=== PATIENT | female | born 1980 | race African-American/Black ===

== ENCOUNTER 2022-04-26 23:26 | Emergency (ER) | payer OTHER ==
[~2022-04-26] VITALS: Ht 162.6 cm; Wt 77.1 kg
--- NOTE | 2022-04-27 00:10 | NUR ---
>Pt has patent airway and speaking in full sentences.
[2022-04-27] MEDS ORDERED: MECLIZINE HCL 25 MG TABLET PO ONE (00:30)
[2022-04-27 01:27] LABS: HEMATOCRIT 32.3 % (31.2-41.9); MEAN CORPUSCULAR HEMOGLOBIN 29.6 uug (24.7-32.8); MEAN CORPUSCULAR VOLUME 89.1 fL (75.5-95.3); PLATELET COUNT (AUTO) 259 K/uL (179-408)
[2022-04-27 01:43] LABS: CARBON DIOXIDE 30 mmol/L (21-32); CHLORIDE 104 mmol/L (98-107); CREATININE 0.8 mg/dL (0.6-1.3); GLUCOSE 80 mg/dL (74-106); POTASSIUM 3.8 mmol/L (3.5-5.1); UREA NITROGEN, BLOOD 12 mg/dL (7-18)
[2022-04-27 01:51] LABS: ALANINE AMINOTRANSFERASE 15 U/L (14-59); ALKALINE PHOSPHATASE 61 U/L (50-136); ASPARTATE AMINOTRANSFERASE 10 U/L (15-37); BILIRUBIN,DIRECT 0.1 mg/dL (0.0-0.2); BILIRUBIN,TOTAL 0.3 mg/dL (0.2-1.0); TOTAL PROTEIN, SERUM 6.8 g/dL (6.4-8.2)
[2022-04-27] MEDS ORDERED: MECLIZINE HCL 25 MG TABLET ONE (03:36)
--- NOTE | 2022-04-27 04:06 | NUR ---
Pt able to walk 25 feet back and forth from bed to bathroom and back. Pt has steady gait and able to walk unassisted. A>Airway remained patent. Pt communicate in full sentences. B>Pt's saturating 100% on RA. No resp distress. Even rise and fall of chest, no retractions. C> No CP, no edema, able to urinate. NSR on EKG. Pt able to tolerate 2 glasses of water and 750 ml of juice. Capp refill <3 D>Pt's GCS remained 15/15. Pt still complains of dizziness. E> Skin is warm to touch, dry. No bruising or wounds. Pt is not well groomed.
[2022-04-27] MEDS ORDERED: MECL-159 PO (05:12)
[2022-04-27] MEDS ORDERED: IV NS 1000 ML 1,000 ML IV ONE (05:15)
--- NOTE | 2022-04-27 07:54 | NUR ---
Pt had 3 cups of juices and 2 glasses of water. she refuse to eat at this time. Report given to JR Henson
--- NOTE | 2022-04-27 09:50 | NUR ---
DISCHARGE INSTRUCTIONS GIVEN PER MD ORDER. PT ADVISED TO FOLLOW-UP W/ [facility]. TEST RESULTS REVIEWED BY MD WITH PATIENT.
[2022-04-27 09:52] VITALS: BP 108/54
--- NOTE | 2022-04-27 09:52 | NUR ---
SALINE LOCK REMOVED PRIOR TO DISCHARGE.
== END 2022-04-27 09:50 | disposition home or self-care (01) ==
LOC: ER 23:56
DX: R42 Dizziness and giddiness (principal)
CPT/HCPCS: 36415; 93005; 99285; 70450; 80076; 80048; 85025; 84484; 84702; J7040; A4663; J8597

== ENCOUNTER 2022-04-30 22:16 | Emergency (ER) | payer OTHER ==
[~2022-04-30] VITALS: Ht 162.6 cm; Wt 77.1 kg
[~2022-04-30 22:16] MED LIST: MECL-159 PO
--- NOTE | 2022-04-30 22:40 | NUR ---
AFTER BEING TRIAGED IN HALLWAY OF ER. PATIENT WAS PLACED BACK IN THE WAITING ROOM DUE TO NO BEDS AVAILABLE IN THE ER.
--- NOTE | 2022-04-30 22:42 | NUR ---
[employer] INTO EVAL PATIENT.
--- NOTE | 2022-05-01 03:00 | NUR ---
Patient walked to ER with steady gait. NAD noted
--- NOTE | 2022-05-01 03:09 | NUR ---
Dr Tran at bedside. MSE in progress
[2022-05-01] MEDS ORDERED: ACET-2605 PO (03:27)
[2022-05-01] MEDS ORDERED: ACETAMINOPHEN ES 500 MG TABLET ONE (03:35)
--- NOTE | 2022-05-01 03:36 | NUR ---
Patient discharged to home in stable condition. Written and verbal after care instructions given. Patient verbalizes understanding of instructions. Stressed follow up or return to ER for worsening s/s. Patient is a/ox4, NAD noted. patient is able to walk with steady gait
[2022-05-01 03:39] VITALS: BP 132/72
[2022-05-01] MEDS ORDERED: ACETAMINOPHEN ES 500 MG TABLET PO ONE (03:45)
== END 2022-05-01 03:40 | disposition home or self-care (01) ==
LOC: ER 22:17
DX: R51.9 Headache, unspecified (principal); S39.012A Strain of muscle, fascia and tendon of lower back, initial encounter; Y04.8XXA Assault by other bodily force, initial encounter; W18.39XA Other fall on same level, initial encounter; Y92.89 Other specified places as the place of occurrence of the external cause
CPT/HCPCS: A4663; A9150